=== PATIENT | male | born 1990 | race Caucasian/White ===

== ENCOUNTER 2017-07-23 10:03 | Observation (INO) | END 2017-07-25 13:33 | disposition home or self-care (01) ==

== ENCOUNTER 2017-10-14 20:42 | Emergency (ER) | payer OTHER, BC ==
[~2017-10-14] VITALS: Ht 182.9 cm; Wt 90.7 kg
[~2017-10-14 20:42] MED LIST: Augmentin 875-1 EACH PO; Norco 7.5-3251 EACH PO
[2017-10-14] MEDS ORDERED: Norco 5-325 Ta1 EACH PO (21:40)
[2017-10-14] MEDS ORDERED: Cyclobenzaprine5 MG PO (21:40)
== END 2017-10-14 22:06 | disposition home or self-care (01) ==
LOC: ER 20:42
DX: S43.015A Anterior dislocation of left humerus, initial encounter (principal); S43.035A Inferior dislocation of left humerus, initial encounter; X58.XXXA Exposure to other specified factors, initial encounter; Y93.72 Activity, wrestling
CPT/HCPCS: 23650; 73020; 99283-25